=== PATIENT | female | born 1960 | race Caucasian/White ===

== ENCOUNTER → 2019-12-08 07:38 | Outpatient (CLI) | payer OTHER, SELFPAY ==
--- NOTE | ~2019-12-08 | US_ITS ---
EXAMINATION: US abdomen complete DATE: 12/08/2019 09:08 INDICATION: Epigastric pain TECHNIQUE: Multiple grayscale and Doppler ultrasound images of the abdomen were obtained. COMPARISON: None FINDINGS: Abdominal aorta is normal in caliber measuring 2.2 cm in AP diameter proximally tapering to 1.6 cm in the mid aorta and 1.5 cm in the distal aorta. Inferior vena cava is normal. Pancreas is normal. Live r has normal echogenicity and contour, with a smooth surface. No liver lesion identified. No intrahep atic biliary duct dilation suspected. Portal venous flow was seen in the hepatopetal, normal directio n and has normal Doppler waveform. The gallbladder is normal in appearance. There is no cholelithias is. The common bile duct measures 3 mm, which is normal. Sonographic Watters sign was reported as nega tive by the shipyard painting supervisor. There is normal renal contour and echogenicity bilaterally. The right kidney measures 10.9 x 4.4 x 5.8 cm and the left 10.3 x 5.7 x 5.4 cm. There are no focal renal lesions ethel ntified. There is no hydronephrosis. Spleen is normal measuring 8.8 cm in maximal length. IMPRESSION: 1. Normal abdominal ultrasound. Reviewed, dictated and finalized at location A.
== END ==
PROVIDERS: PCP Internal Medicine; Visit Provider Internal Medicine
DX: R10.13 Epigastric pain (principal)
CPT/HCPCS: 76700

== ENCOUNTER 2019-12-22 09:24 | Outpatient (CLI) | payer OTHER, SELFPAY ==
--- NOTE | ~2019-12-22 | NM_ITS ---
EXAMINATION: NM hepatobiliary w pharm EXAM DATE: 12/22/2019 11:50 INDICATION: Epigastric pain. TECHNIQUE: 4.9 mCi Tc-99m mebrofenin (Choletec) was administered intravenously. Scintigraphic images of the abdomen were obtained for one hour. At the 1 hour time point, 1.4 mcg sincalide (Kinevac) was administered by slow intravenous infusion, and imaging was continued for 30 minutes. Gallbladder eje ction fraction was calculated by the technologist. There is no prior study for comparison. FINDINGS: There is normal clearance of radiotracer from the blood pool. There is homogeneous tracer u ptake by the liver. Activity progresses to the gallbladder and bowel. The gallbladder ejection fract ion (GBEF) is 81 % (most patients with gallbladder dysfunction have GBEF < 35%, but there is overlap with the normal range of 10-90%). IMPRESSION: Gallbladder ejection fraction 81%, within normal range. Reviewed, dictated and finalized at location A.
== END 2019-12-22 09:25 | disposition home or self-care (01) ==
PROVIDERS: PCP Internal Medicine; Visit Provider Internal Medicine
DX: R10.13 Epigastric pain (principal)
CPT/HCPCS: 78227; A9537; J2805

== ENCOUNTER 2020-01-15 01:43 | Outpatient (CLI) | payer OTHER, SELFPAY ==
[2020-01-15 18:01] LABS: SARS-CoV-2 RNA PCR Negative
== END 2020-01-15 01:44 | disposition home or self-care (01) ==
LOC: ANHCOVIDDT 01:43
PROVIDERS: PCP Internal Medicine; Visit Provider Internal Medicine Gastroenterology
DX: Z01.812 Encounter for preprocedural laboratory examination (principal); Z20.828 Contact with and (suspected) exposure to other viral communicable diseases
CPT/HCPCS: 87635; C9803; U0003

== ENCOUNTER 2020-01-18 03:53 | Day surgery (SDC) | payer OTHER, SELFPAY ==
[2020-01-06 14:53] VITALS: BMI 25.4
[2020-01-18 06:20] VITALS: BP 128/71; PULSE 84; RESP 16; TEMP 36.4; O2SAT 100; BMI 25.0
[2020-01-18] MEDS: LACTATED RINGERS 1,000 ML 150 ML IV CONT (06:43)
--- NOTE | 2020-01-18 07:14 | WPDANESEPPF ---
Anes - Initial Pre Proc Eval Procedure: Operation Date: 01/18/20 07:30 Proposed Procedures p Esophagogastroduodenoscopy - Hoang Davis MD Date/Time: 01/18/20 07:14 Surgeon: Hoang Davis MD Pre Op Diagnosis: epigastric pain Patient Data Age: 59 Gender: F Height: 5 ft 4 in Weight: 66 kg Last Vital Signs Temp 97.6 F 01/18/20 06:20 Pulse 84 01/18/20 06:20 Resp 16 01/18/20 06:20 BP 128/71 01/18/20 06:20 Pulse Ox 100 01/18/20 06:20 Allergies Allergy/AdvReac Type Severity Reaction Status Date / Time No Known Allergies Allergy Verified 01/18/20 06:18 Home Medications Medication Instructions Recorded Confirmed Type alprazolam 0.5 mg PO BID PRN 01/06/20 01/06/20 History levothyroxine 150 mcg PO DAILY 01/06/20 01/06/20 History pantoprazole 40 mg PO QAM 01/06/20 01/06/20 History rosuvastatin 10 mg PO DAILY 01/06/20 01/06/20 History Patient hx anesthesia problems: none Family hx anesthesia problems: none [facility] Past Medical History Medical History (Updated 01/18/20 @ 07:14 by Aiden Duque MD) Arthritis Hyperlipidemia Hypothyroid Anes - Eval Final PreProcedure Day of Procedure 01/18/20 07:14 Patient weight: normal Heart: regular rate and rhythm Lungs: clear to auscultation Airway: Mallampati scale class II Neurological: alert and oriented Last oral intake: >/= 8 hours ASA classification: II Emergent: no Anesthetic plan: proceed Anesthesia type and monitoring: general GIVS and standard monitoring Informed Consent: The patient's anesthetic plan and its attendant risks and benefits were discussed with the patient/family/POA. Questions were solicited and answers provided to the satisfaction of the patient/family/POA.
[2020-01-18] MEDS: BENZOCAINE (*SP) 60 ML SPRAY CAN (HURRICAINE) 1 SPRAY MUCOUS MEM (07:25)
--- NOTE | 2020-01-18 07:32 | WPDGICN ---
Assessment and Plan Assessment and plan (1) Epigastric abdominal pain: Code(s): R10.13 - Epigastric pain Status: Acute Assessment and Plan: Epigastric pain is been persistent since July 2019. Poorly responsive to current medications. Because of ongoing pain EGD will be performed. Further recommendations will be given after endoscopy. GI Consult Note Consult date/time: 01/18/20 07:32 HPI: Camryn Shay is a 59 year old female Seen in evaluation at the request of Dr. Hua Garcia. Patient reports epigastric pain since July of 2019. She describes pain across the mid epigastric area. This appears to occur intermittently. But she does have a mid epigastric discomfort persists. She has been treated with pantoprazole supplemented with Pepcid with no specific improvement symptoms. She denies any dysphagia. She denies any bleeding. She denies any weight loss. She is somewhat frustrated with ongoing pain. Recent ultrasound and HIDA scan are reported to be within normal limits. Family history is noncontributory. Review of Systems Review of Systems: All systems reviewed & are unremarkable except as noted in HPI and below PMFSH Past Medical History Medical History Arthritis Hyperlipidemia Hypothyroid Meds Home Medications and Allergies Home Medications Medication Instructions Recorded Confirmed Type alprazolam 0.5 mg PO BID PRN 01/06/20 01/06/20 History levothyroxine 150 mcg PO DAILY 01/06/20 01/06/20 History pantoprazole 40 mg PO QAM 01/06/20 01/06/20 History rosuvastatin 10 mg PO DAILY 01/06/20 01/06/20 History Allergies Allergy/AdvReac Type Severity Reaction Status Date / Time No Known Allergies Allergy Verified 01/18/20 06:18 Vital Signs Vital Signs - 24 hr 01/18/20 06:20 Temperature 97.6 F Pulse Rate 84 Respiratory Rate 16 Blood Pressure 128/71 Pulse Oximetry 100 Exam Narrative: Exam Narrative: Physical exam reveals patient to be alert. Vital signs stable. HEENT exam unremarkable. Lungs are clear to auscultation and percussion. Heart is without murmur or extra sounds. Abdominal exam bowel sounds are present soft nontender with no organomegaly. Digital external rectal exam is normal.
[2020-01-18 07:37] VITALS: BP 106/67; PULSE 87; RESP 24; O2SAT 100
[2020-01-18 07:47] VITALS: BP 121/71; PULSE 81; RESP 19; O2SAT 98
[2020-01-18 07:57] VITALS: BP 124/71; PULSE 74; RESP 19; O2SAT 97
--- NOTE | 2020-01-18 08:04 | SUR.PHASEII ---
MD made aware of positive H. Pylori.
== END 2020-01-18 08:11 | disposition home or self-care (01) ==
PROVIDERS: PCP Internal Medicine; Visit Provider Internal Medicine Gastroenterology
PROC: 0DJ08ZZ Inspection of Upper Intestinal Tract, Via Natural or Artificial Opening Endoscopic (ICD-10-PCS; CPT 43235; principal; 2020-01-18 07:30)
DX: R10.13 Epigastric pain (principal); E78.5 Hyperlipidemia, unspecified; E03.9 Hypothyroidism, unspecified
CPT/HCPCS: 43239; 87081; J2704; J7120

== ENCOUNTER 2020-03-20 14:09 | Outpatient (CLI) | payer OTHER, SELFPAY ==
--- NOTE | ~2020-03-20 | CT_ITS ---
EXAMINATION: CT abdomen pelvis w con DATE: 03/20/2020 14:39 INDICATION: Epigastric pain. History of inguinal hernia repair. TECHNIQUE: Computed tomography (CT) of the abdomen and pelvis was performed with 100 cc Omnipaque 350 intravenous contrast. The dose-length product was 529.14 mGy-cm. Automated exposure control and iter ative reconstruction technique were employed. COMPARISON: None. FINDINGS: Lung bases are unremarkable. No significant pleural or pericardial effusion. Heart size nor mal. Fatty infiltration of the liver. Spleen, pancreas, adrenal glands and kidneys are unremarkable. Nonobstructive bowel gas pattern. Bladder is unremarkable. No abnormal pelvic masses or fluid collect ions. Mild lumbar spondylosis with dextroscoliosis. No free air or free fluid. No significant vascula r abnormality. No lymphadenopathy. Normal appendix. No acute osseous abnormality. There are changes o f hysterectomy. IMPRESSION: 1. No acute abdominal abnormality. Reviewed, dictated and finalized at location B.
[2020-03-20 14:28] LABS: Estimated Glomerular Filt Rate > 60
== END 2020-03-20 14:10 ==
PROVIDERS: PCP Internal Medicine; Visit Provider Internal Medicine
DX: R10.9 Unspecified abdominal pain (principal)
CPT/HCPCS: 74177; Q9967

== ENCOUNTER → 2020-05-18 10:19 | Outpatient (CLI) | payer OTHER, SELFPAY ==
--- NOTE | ~2020-05-18 | MM_ITS ---
EXAMINATION: MM screening nataliya BI w maria e HISTORY: Screening mammogram, family history of breast cancer in her mother. TECHNIQUE: Craniocaudal and mediolateral oblique 3-D tomosynthesis images were obtained and synthetic 2-D images were generated. CAD analysis was submitted and interpreted. COMPARISON: 01/26/2019, 11/11/2017, 02/12/2016, 01/30/2015 BREAST PARENCHYMAL COMPOSITION: There are scattered areas of fibroglandular density. FINDINGS: There is no evidence of suspicious mass, calcification, or architectural distortion to sugg est malignancy in either breast. There has been no suspicious interval change. IMPRESSION: 1. No mammographic evidence of malignancy. 2. Recommend routine screening mammography in one year. BI-RADS Category 1: Negative Reviewed, dictated and finalized at location A. TER WHITTLER
== END ==
PROVIDERS: PCP Internal Medicine; Visit Provider Internal Medicine
DX: Z12.31 Encounter for screening mammogram for malignant neoplasm of breast (principal)
CPT/HCPCS: 77063; 77067

== ENCOUNTER 2023-12-22 07:35 | Outpatient (CLI) | payer MEDICARE, OTHER, SELFPAY ==
--- NOTE | 2023-12-24 11:36 | WPDPFTINT ---
PFT Procedure Performed PFT Procedure Performed Plethysmography (Lung Vol) Diffusing Cap (DLCO) Flow Vol Loop Spirometry w/o Bronchodil PFT Interpretation DOS: 12/22/2023 REQUESTING: Hua Garcia MD REASON FOR TESTING: Dyspnea PULMONARY FUNCTION TESTS Results are reliable and reproducible. Repeatability of spirometry FEV1 maneuver is Grade A. Spirometry: The FEV1 is 2.25 L, 103%. The FVC is 3.66 L, 132% predicted. The FEV1/FVC ratio is 61%, below the lower limit of normal. No bronchodilator was given. Lung volumes: The total lung capacity is 4.98 L, 105% predicted, normal. The residual volume is 1.32 L, 67%, normal. The RV/TLC is 27%, below the lower limit of normal. Diffusion: DLCO is 13.3, 65% predicted, decreased. The DLCO/VA is 2.92, 65% predicted, decreased. Flow volume loop: The flow volume loop shows coving. IMPRESSION: This shows a mild obstructive ventilatory impairment with normal lung volumes and a mild diffusion impairment. No bronchodilator was given. No prior studies to compare. Ashley Melton MD
== END 2023-12-22 07:36 | disposition home or self-care (01) ==
LOC: ANHPFT 07:39
PROVIDERS: PCP Internal Medicine; Visit Provider Internal Medicine
DX: R06.00 Dyspnea, unspecified (principal); R94.2 Abnormal results of pulmonary function studies
CPT/HCPCS: 94375; 94726; 94729